=== PATIENT | male | born 1970 | race Caucasian/White ===

== ENCOUNTER 2019-05-15 08:10 | Emergency (ER) | payer OTHER ==
[2019-05-15] MEDS ORDERED: MORPHINE 4 MG/ML SYR ONE (09:08)
[2019-05-15] MEDS ORDERED: ONDANSETRON 4 MG/2 ML VIAL ONE (09:08)
[2019-05-15] MEDS ORDERED: NA CHLORIDE 0.9% 500 ML ONE (09:08)
[2019-05-15 09:10] LABS: Absolute Lymphocytes (CBC) 5.1 K/uL (0.7-4.9); Basophils % 1.2 % (0-1.3); Hematocrit 47.4 % (39.6-49.0); Lymphocytes % 38.6 % (15.3-44.8); MPV 9.4 fL (7.6-11.3); RBC Red Blood Cell Count 5.22 M/uL (4.33-5.43)
[2019-05-15 09:32] LABS: Albumin 3.9 g/dL (3.4-5.0); Bilirubin Total 0.2 mg/dL (0.2-1.0); Potassium 3.9 mmol/L (3.5-5.1); Protein, Total 7.9 g/dL (6.4-8.2)
[2019-05-15 09:51] LABS: Urine Blood NEGATIVE (NEG); Urine Glucose NEGATIVE (NEG); Urine Protein NEGATIVE (NEG); Urine Specific Gravity 1.025 (1.005-1.030); Urine pH 5.5 (5.0-7.0)
--- NOTE | 2019-05-15 10:11 | RAD REPORT ---
EXAM DESCRIPTION: CTAbdomen Pelvis W Contrast - 05/15/2019 9:51 am CLINICAL HISTORY: Abdominal pain. Epigastric / RUQ post miguel angel (remote);Abd pain COMPARISON: CT ABD PELVIS W CONTRAST dated 02/07/2015 TECHNIQUE: Biphasic CT imaging of the abdomen and pelvis was performed with 100 ml non-ionic IV cont rast. All CT scans are performed using dose optimization technique as appropriate and may include automated exposure control or mA/KV adjustment according to patient size. FINDINGS: The lung bases are clear. Mild intrahepatic biliary dilatation is seen. Cholecystectomy clips are seen. No intrahepatic mass se en. The spleen, pancreas, adrenal glands and kidneys are within normal limits. No bowel obstruction, free air, free fluid or abscess. The appendix is normal. No evidence of signi ficant lymphadenopathy. No suspicious bony findings. IMPRESSION: Mild intrahepatic biliary dilatation is seen status post cholecystectomy. This is probab ly within the limits of normal reservoir effect. Correlation with physical exam/laboratory findings o f biliary obstruction is suggested, however.
--- NOTE | 2019-05-15 10:44 | EDPHYS ---
Physician Documentation [facility] Name: Judson Rodriguez Age: 48 yrs Sex: Male : 1970 Arrival Date: 05/15/2019 Time: 08:12 Bed 19 Private MD: ED Physician Gordon Ko HPI: 05/15 08:48 This 48 yrs old Male presents to ER via Ambulatory with complaints of Back ps1 Pain, Leg Pain. 08:48 Patient has known history of lower back pain and sciatica. Has pain specialist in [address], [place]. Has moved to area and sees Dr. Sheldon. Was previously prescribed 10/325 q6 and now 10/325 q8 and he was taking an extra pill. He is out of his medications. Pain is rated as severe. POC is to get epidural injection/rhizotomy. States that he is non-surgical. Looking for pain control in this area. Additionally has RUQ pain. Hx of pancreatitis from triglycerides. Symptoms started about a week ago and intermittent. Has allergy to Embeda but ok with morphine, taken previously. . Historical: - Allergies: 08:35 Embeda; iw - Home Meds: 08:35 Cymbalta 60 mg oral cpDR 1 cap once daily [Active]; Flexeril 10 mg Oral tab 1 tab 3 iw times per day [Active]; unknown BP med daily [Active]; Hyannis 10-325 mg Oral tab every 4-6 hours [Active]; - PMHx: 08:36 Back pain; Hypertension; iw - PSHx: 08:29 lower back; cervical laminectomy; Cholecystectomy; sam shoulders; right hand; ph - Immunization history:: Adult Immunizations not up to date. - Social history:: Smoking status: Patient uses tobacco products, smokes one-half pack cigarettes per day. - Ebola Screening: : No symptoms or risks identified at this time. ROS: 08:48 Constitutional: Negative for fever, chills, and weight loss, Eyes: Negative for injury, ps1 pain, redness, and discharge, Cardiovascular: Negative for chest pain, palpitations, and edema, Respiratory: Negative for shortness of breath, cough, wheezing, and pleuritic chest pain, MS/Extremity: Negative for injury and deformity, Skin: Negative for injury, rash, and discoloration, Neuro: Negative for headache, weakness, numbness, tingling, and seizure. 08:48 Abdomen/GI: Positive for abdominal pain, of the epigastric area and right upper quadrant. 08:48 Back: Positive for pain at rest, pain with movement, radiated pain, down both legs. Exam: 08:53 Constitutional: This is a well developed, well nourished patient who is awake, alert, ps1 and in no acute distress. Head/Face: Normocephalic, atraumatic. Eyes: Pupils equal round and reactive to light, extra-ocular motions intact. Lids and lashes normal. Conjunctiva and sclera are non-icteric and not injected. Chest/axilla: Normal chest wall appearance and motion. Nontender with no deformity. No lesions are appreciated. Cardiovascular: Regular rate and rhythm. No gallops, murmurs, or rubs. Normal PMI, no JVD. No pulse deficits. Respiratory: Lungs have equal breath sounds bilaterally, clear to auscultation and percussion. No rales, rhonchi or wheezes noted. No increased work of breathing, no retractions or nasal flaring. Abdomen/GI: Soft, non-tender, with normal bowel sounds. No distension or tympany. No guarding or rebound. No evidence of tenderness throughout. 08:53 Back: pain, that is mild, of the left low back and right low back. Vital Signs: 08:36 BP 138 / 101; Pulse 123; Resp 18 S; Temp 98.3; Pulse Ox 100% on R/A; Weight 136.08 kg; iw Height 6 ft. 0 in. (182.88 cm); Pain 9/10; 09:42 BP 132 / 94; Pulse 106; Resp 18; Pulse Ox 99% on R/A; Pain 5/10; ph 10:45 BP 127 / 85; Pulse 97; Resp 18; Temp 98.1; Pulse Ox 100% on R/A; ph 08:36 Body Mass Index 40.69 (136.08 kg, 182.88 cm) iw MDM: 08:57 Patient medically screened. ps1 10:41 Differential diagnosis: Inflammatory Bowel Disease Neoplasm Obesity spinal injury, ps1 pancreatitis, biliary obstruction, peptic ulcer, medication compliance, opioid dependance, and others. Data reviewed: vital signs, nurses notes, lab test result(s), radiologic studies. Counseling: I had a detailed discussion with the patient and/or guardian regarding: the historical points, exam findings, and any diagnostic results supporting the discharge/admit diagnosis, the presence of at least one elevated blood pressure reading (>120/80) during this emergency department visit, lab results, radiology results, the need for outpatient follow up, to return to the emergency department if symptoms worsen or persist or if there are any questions or concerns that arise at home. 05/15 08:48 Order name: CBC with Diff; Complete Time: 09:18 [facility] 05/15 09:19 Interpretation: Abnormal: WBC 13.1. [facility] 05/15 08:48 Order name: CMP; Complete Time: 09:38 [facility] 05/15 10:30 Interpretation: Within normal limits: AST 16; ALT 27; ALK 111; BILIT 0.2. [facility] 05/15 08:48 Order name: Lipase; Complete Time: 09:38 [facility] 05/15 09:40 Interpretation: Within normal limits: LIP 107. [facility] 05/15 08:57 Order name: Lipid Profile; Complete Time: 09:38 [facility] 05/15 09:19 Order name: CT Abd/Pelvis - IV Contrast Only; Complete Time: 10:28 [facility] 05/15 09:34 Order name: Urine Dipstick--Ancillary (enter results); Complete Time: 10:28 bd Administered Medications: 09:17 Drug: NS 0.9% 500 ml Route: IV; Rate: 1 bolus; Site: right antecubital; ph 15:28 Follow up: Response: No adverse reaction; IV Status: Completed infusion; IV Intake: ph 500ml 09:18 Drug: morphine 4 mg Route: IVP; Site: right antecubital; ph 15:27 Follow up: Response: No adverse reaction; Pain is decreased; RASS: Alert and Calm (0); ph initial RASS +1 09:18 Drug: Zofran 4 mg Route: IVP; Site: right antecubital; ph 09:40 Follow up: Response: No adverse reaction ph 11:14 Drug: Hyannis 10 mg-325 mg 1 tabs Route: PO; ph 11:15 Follow up: Response: No adverse reaction; Medication administered at discharge. ph Disposition: 05/15/19 10:44 Discharged to Home. Impression: Opioid dependence, Lower back pain, epigastric pain. - Condition is Stable. - Discharge Instructions: Abdominal Pain, Adult, Chronic Back Pain. - Medication Reconciliation Form, Thank You Letter, Antibiotic Education, Prescription Opioid Use form. - Follow up: Emergency Department; When: As needed; Reason: Fever > 102 F, Worsening of condition. Follow up: Private Physician; When: As needed; Reason: Further diagnostic work-up, Recheck today's complaints, Continuance of care, Re-evaluation by your physician. - Problem is an acute exacerbation. - Symptoms have improved. Signatures: Dispatcher [employer] EDTressa Medina RN RN Liz Mclean RN RN Gordon Ko MD MD ps1 Corrections: (The following items were deleted from the chart) 08:35 08:29 Allergies: No Known Drug Allergies; [facility] 09:41 09:40 LIP 107. ps1 ps1 11:27 10:44 05/15/2019 10:44 Discharged to Home. Impression: Opioid dependence; Lower back ph pain; epigastric pain. Condition is Stable. Forms are Medication Reconciliation Form, Thank You Letter, Antibiotic Education, Prescription Opioid Use. Follow up: Emergency Department; When: As needed; Reason: Fever > 102 F, Worsening of condition. Follow up: Private Physician; When: As needed; Reason: Further diagnostic work-up, Recheck today's complaints, Continuance of care, Re-evaluation by your physician. Problem is an acute exacerbation. Symptoms have improved. ps1
--- NOTE | 2019-05-15 10:44 | ER ---
Nurse's Notes [facility] Name: Judson Rodriguez Age: 48 yrs Sex: Male : 1970 Arrival Date: 05/15/2019 Time: 08:12 Bed 19 Private MD: Diagnosis: Opioid dependence;Lower back pain;epigastric pain Presentation: 05/15 08:25 Risk Assessment: Do you want to hurt yourself or someone else? Patient reports no ph desire to harm self or others. Initial Sepsis Screen: Does the patient meet any 2 criteria? No. Patient's initial sepsis screen is negative. Does the patient have a suspected source of infection? No. Patient's initial sepsis screen is negative. Care prior to arrival: None. 08:29 Presenting complaint: Patient states: chronic low back pain from previous back injury, iw is prescribed Glasgow 10/325 TID, ran out 2 nights ago, also c/o RUQ pain X 2 weeks, pain described as stabbing, denies vomiting or diarrhea. Transition of care: patient was not received from another setting of care. Onset of symptoms was May 14, 2019. 08:29 Method Of Arrival: Ambulatory iw 08:29 Acuity: JENNIFER 3 iw Historical: - Allergies: 08:35 Embeda; iw - Home Meds: 08:35 Cymbalta 60 mg oral cpDR 1 cap once daily [Active]; Flexeril 10 mg Oral tab 1 tab 3 iw times per day [Active]; unknown BP med daily [Active]; Glasgow 10-325 mg Oral tab every 4-6 hours [Active]; - PMHx: 08:36 Back pain; Hypertension; iw - PSHx: 08:29 lower back; cervical laminectomy; Cholecystectomy; sam shoulders; right hand; ph - Immunization history:: Adult Immunizations not up to date. - Social history:: Smoking status: Patient uses tobacco products, smokes one-half pack cigarettes per day. - Ebola Screening: : No symptoms or risks identified at this time. Screenin:25 Abuse screen: Denies threats or abuse. Denies injuries from another. Nutritional ph screening: No deficits noted. Tuberculosis screening: No symptoms or risk factors identified. Fall Risk None identified. Assessment: 08:47 General: Appears in no apparent distress. uncomfortable, well groomed, Behavior is ph calm, cooperative, appropriate for age, restless. Pain: Complains of pain in low back area and RUQ. Neuro: Level of Consciousness is awake, alert, obeys commands, Oriented to person, place, time, situation. Cardiovascular: Capillary refill < 3 seconds in bilateral fingers Patient's skin is warm and dry. Respiratory: Airway is patent Respiratory effort is even, unlabored, Respiratory pattern is regular, symmetrical. GI: Abdomen is round non-distended, Reports upper abdominal pain. Derm: Skin is intact, is healthy with good turgor, Skin is pink, warm \T\ dry. Musculoskeletal: Circulation, motion, and sensation intact. Range of motion: intact in all extremities, Reports pain in low back area radiates to sam legs. 09:44 Reassessment: Patient appears in no apparent distress at this time. Patient and/or ph family updated on plan of care and expected duration. Pain level reassessed. Patient is alert, oriented x 3, equal unlabored respirations, skin warm/dry/pink. Pt reports that pain has improved after IV pain meds, taken to CT via wheelchair. Vital Signs: 08:36 BP 138 / 101; Pulse 123; Resp 18 S; Temp 98.3; Pulse Ox 100% on R/A; Weight 136.08 kg; iw Height 6 ft. 0 in. (182.88 cm); Pain 9/10; 09:42 BP 132 / 94; Pulse 106; Resp 18; Pulse Ox 99% on R/A; Pain 5/10; ph 10:45 BP 127 / 85; Pulse 97; Resp 18; Temp 98.1; Pulse Ox 100% on R/A; ph 08:36 Body Mass Index 40.69 (136.08 kg, 182.88 cm) iw ED Course: 08:12 Patient arrived in ED. as 08:24 Liz Mclean, OCTAVIO is Primary Nurse. ph 08:24 Gordon Ko MD is Attending Physician. ps1 08:26 Arm band placed on Patient placed in an exam room, on a stretcher, on pulse oximetry. ph 08:28 Patient has correct armband on for positive identification. Bed in low position. Call ph light in reach. Side rails up X 1. Pulse ox on. NIBP on. Door closed. Noise minimized. 08:33 Triage completed. iw 09:00 Initial lab(s) drawn, by nj, sent to lab. Inserted saline lock: 20 gauge in right ph antecubital area, using aseptic technique. Blood collected. 09:52 CT Abd/Pelvis - IV Contrast Only In Process Unspecified. EDMS 11:25 No provider procedures requiring assistance completed. IV discontinued, intact, ph bleeding controlled, No redness/swelling at site. Pressure dressing applied. Administered Medications: 09:17 Drug: NS 0.9% 500 ml Route: IV; Rate: 1 bolus; Site: right antecubital; ph 15:28 Follow up: Response: No adverse reaction; IV Status: Completed infusion; IV Intake: ph 500ml 09:18 Drug: morphine 4 mg Route: IVP; Site: right antecubital; ph 15:27 Follow up: Response: No adverse reaction; Pain is decreased; RASS: Alert and Calm (0); ph initial RASS +1 09:18 Drug: Zofran 4 mg Route: IVP; Site: right antecubital; ph 09:40 Follow up: Response: No adverse reaction ph 11:14 Drug: Glasgow 10 mg-325 mg 1 tabs Route: PO; ph 11:15 Follow up: Response: No adverse reaction; Medication administered at discharge. ph Intake: 15:28 IV: 500ml; Total: 500ml. ph Outcome: 10:44 Discharge ordered by . ps1 11:27 Patient left the ED. ph 11:27 Discharged to home ambulatory, with family. ph 11:27 Condition: improved 11:27 Discharge instructions given to patient, Instructed on discharge instructions, follow up and referral plans. Demonstrated understanding of instructions, follow-up care. Signatures: Dispatcher [employer] EDMS Tammy Cruz as Tressa Verde RN RN iw Liz Mclean RN RN ph Gordon Ko MD MD ps1 Corrections: (The following items were deleted from the chart) 08:35 08:29 Allergies: No Known Drug Allergies; ph iw
[2019-05-15] MEDS ORDERED: HYDROCODONE/APAP 10/325 TAB ONE (11:04)
[2019-05-15 11:32] VITALS: TEMP 98.3
[2019-05-15 11:33] VITALS: BP 132/94; O2SAT 99
== END 2019-05-15 11:27 | disposition home or self-care (01) ==
LOC: ER 08:10
DX: R10.13 Epigastric pain (principal); F11.20 Opioid dependence, uncomplicated; I10 Essential (primary) hypertension; F17.210 Nicotine dependence, cigarettes, uncomplicated; Z88.8 Allergy status to other drugs, medicaments and biological substances
CPT/HCPCS: 96361; 85025; 36415; 80061; 81003; 83690; 80053; 74177; 96375; 96374; 99284; Q9967; J7040; J2405

== ENCOUNTER 2024-08-11 13:43 | Emergency (ER) | payer OTHER ==
[2024-08-11] MEDS ORDERED: METHYLPREDNISOLONE 125 MG INJ ONE (14:19)
[2024-08-11] MEDS ORDERED: IPRATROPIUM BROM 0.5MG/2.5ML ONE (14:19)
[2024-08-11] MEDS ORDERED: LEVALBUTEROL 1.25 MG/3 ML NEB ONE ×4 (14:19→17:46)
[2024-08-11] MEDS ORDERED: levoFLOXacin 250 MG TAB ONE (14:20)
[2024-08-11] MEDS ORDERED: FAMOTIDINE 20 MG/2 ML VIAL IV ONE ×2 (14:20→16:36)
[2024-08-11 14:40] LABS: Absolute Lymphocytes (CBC) 2.6 K/uL (0.7-4.9); Absolute Monocytes 1.6 K/uL (0.1-1.3); Absolute Neutrophil 18.5 K/uL (1.8-8.0); Basophils % 0.2 % (0-1.3); Eosinophils % 0.1 % (0-4.4); Hemoglobin 14.9 g/dL (13.6-17.9); Lymphocytes % 11.4 % (15.3-44.8); MCH 29.4 pg (27.0-35.0); MCHC 33.2 g/dL (32.0-36.0); MCV 88.6 fL (80-100); Monocytes % 6.9 % (3.3-12.3); Neutrophils % 81.4 % (41.7-73.7); Platelets 418 thou/uL (152-406); RBC Red Blood Cell Count 5.08 M/uL (4.33-5.43); Red Cell Distribution Width 14.2 % (12.1-15.2)
[2024-08-11 14:55] LABS: PT Prothrombin Time 13.4 SECONDS (10.0-13.0); Protime INR 1.18
[2024-08-11 15:00] LABS: Albumin 2.9 g/dL (3.4-5.0); Albumin/Globulin Ratio 0.6 (1.1-1.8); Anion Gap 7.1 mEq/L (5.0-15.0); Bilirubin Direct 0.2 mg/dL (0-0.2); Bilirubin Indirect, Calculated 0.2 mg/dL (0.2-0.8); Bilirubin Total 0.4 mg/dL (0.2-1.0); Globulin 4.6 g/dL (2.3-3.5); Magnesium 2.3 mg/dL (1.6-2.4); Potassium 4.1 mEq/L (3.5-5.1); Protein, Total 7.5 g/dL (6.4-8.2); Troponin High Sensitivity 24.1 pg/mL (<58.9)
[2024-08-11 15:03] LABS: Influenza A Ag Negative; Influenza B Ag Negative; SARS-CoV-2 Antigen Rapid Res Negative (Negative)
[2024-08-11] MEDS ORDERED: TOBRAMYCIN SULF 0.3% OPTH OINT ONE (15:16)
--- NOTE | 2024-08-11 15:19 | RAD REPORT ---
EXAMINATION: ONE VIEW CHEST XR CLINICAL INDICATION: Male, 53 years old.,COUGH TECHNIQUE: Frontal chest projection is submitted. Examination is limited by patient positioning and t echnique. COMPARISON: 02/08/2015 FINDINGS: Progressive patchy central predominant bilateral airspace opacities. No pneumothorax or sizable effu yolande. The heart is normal in size. Mediastinal contours are unremarkable. IMPRESSION: Progressive patchy central predominant bilateral airspace opacities, concerning for pneumonitis.
[2024-08-11] MEDS ORDERED: CEFTRIAXONE 2000 MG/VIAL ONE (15:33)
[2024-08-11] MEDS ORDERED: NA CHLORIDE 0.9% 250 ML ONE (15:34)
[2024-08-11] MEDS ORDERED: AZITHROMYCIN 500 MG INJ IVPB ONE (15:34)
[2024-08-11] MEDS ORDERED: NA CHLORIDE 0.9% 100 ML ONE (15:34)
--- NOTE | 2024-08-11 15:38 | EDPHYS ---
Physician Documentation [facility] Name: Judson Rodriguez Age: 53 yrs Sex: Male : 1970 Arrival Date: 08/11/2024 Time: 13:43 Bed 3 Private MD: ED Physician Bryce Benjamin HPI: 08/11 14:36 This 53 yrs old Male presents to ER via Ambulatory with complaints of carter Breathing Difficulty. 14:36 The patient has shortness of breath with light activity. Onset: The symptoms/episode carter began/occurred 10 day(s) ago. Duration: The symptoms are continuous, and are steadily getting worse. The patient's shortness of breath is aggravated by coughing, exertion, light activity. Associated signs and symptoms: Pertinent positives: non-productive cough, fever. Severity of symptoms: At their worst the symptoms were moderate in the emergency department the symptoms are unchanged. The patient has not experienced similar symptoms in the past. Historical: - Allergies: 13:59 Embeda; ap3 - Home Meds: 17:06 methadone 10 mg Oral tablet every 8 hours [Active]; methimazole 5 mg Oral tablet 0.5 iw tab daily [Active]; fluticasone propionate 250 mcg/actuation inhalation Blister, With Inhalation Device 2 times per day [Active]; losartan 100 mg oral tablet daily [Active]; cyclobenzaprine 10 mg Oral tablet once daily at bedtime [Active]; tamsulosin 0.4 mg oral capsule daily [Active]; duloxetine 60 mg oral capsule,delayed release (e.c.) 2 times per day [Active]; nebivolol 2.5 mg oral tablet daily [Active]; hyoscyamine sulfate 0.125 mg SL Tablet, Sublingual every 8 hours [Active]; - PMHx: 13:59 Back pain; Hypertension; ap3 - Immunization history:: Client reports having NOT received the Covid vaccine. Last tetanus immunization: unknown, Flu vaccine is not up to date. - Infectious Disease History:: Denies. - Social history:: Smoking status: Patient reports the use of cigarette tobacco products, smokes one pack cigarettes per day. ROS: 14:36 Constitutional: Negative for fever, chills, and weight loss, ENT: Negative for injury, carter pain, and discharge, Neck: Negative for injury, pain, and swelling, Cardiovascular: Negative for chest pain, palpitations, and edema, Abdomen/GI: Negative for abdominal pain, nausea, vomiting, diarrhea, and constipation, Back: Negative for injury and pain, : Negative for injury, bleeding, discharge, and swelling, MS/Extremity: Negative for injury and deformity, Skin: Negative for injury, rash, and discoloration, Neuro: Negative for headache, weakness, numbness, tingling, and seizure, Psych: Negative for depression, anxiety, suicide ideation, homicidal ideation, and hallucinations, Allergy/Immunology: Negative for hives, rash, and allergies, Endocrine: Negative for neck swelling, polydipsia, polyuria, polyphagia, and marked weight changes, Hematologic/Lymphatic: Negative for swollen nodes, abnormal bleeding, and unusual bruising, 14:36 Eyes: Positive for itching, matting, 14:36 Respiratory: Positive for cough, shortness of breath, wheezing, inspiratory, expiratory, 14:36 Neuro: Positive for weakness, Exam: 14:36 Constitutional: This is a well developed, well nourished patient who is awake, alert, carter and in no acute distress. Head/Face: Normocephalic, atraumatic. ENT: Nares patent. No nasal discharge, no septal abnormalities noted. Tympanic membranes are normal and external auditory canals are clear. Oropharynx with no redness, swelling, or masses, exudates, or evidence of obstruction, uvula midline. Mucous membranes moist. Neck: Trachea midline, no thyromegaly or masses palpated, and no cervical lymphadenopathy. Supple, full range of motion without nuchal rigidity, or vertebral point tenderness. No Meningismus. Chest/axilla: Normal chest wall appearance and motion. Nontender with no deformity. No lesions are appreciated. Cardiovascular: Regular rate and rhythm with a normal S1 and S2. No gallops, murmurs, or rubs. Normal PMI, no JVD. No pulse deficits. Abdomen/GI: Soft, non-tender, with normal bowel sounds. No distension or tympany. No guarding or rebound. No evidence of tenderness throughout. Back: No spinal tenderness. No costovertebral tenderness. Full range of motion. Male : Normal genitalia with no discharge or lesions. Skin: Warm, dry with normal turgor. Normal color with no rashes, no lesions, and no evidence of cellulitis. MS/ Extremity: Pulses equal, no cyanosis. Neurovascular intact. Full, normal range of motion., bilateral aka Neuro: Awake and alert, GCS 15, oriented to person, place, time, and situation. Cranial nerves II-XII grossly intact. Motor strength 5/5 in all extremities. Sensory grossly intact. Cerebellar exam normal. Normal gait. Psych: Awake, alert, with orientation to person, place and time. Behavior, mood, and affect are within normal limits. 14:36 Eyes: Periorbital structures: erythema, that is mild, swelling, that is mild, Pupils: no acute changes, equal, round, and reactive to light and accomodation, Extraocular movements: intact throughout, Conjunctiva: injected, bilaterally, Corneas: are normal, no acute changes, Sclera: no appreciated abnormality, Anterior chamber: normal, Lids and lashes: erythema, seen bilaterally, Visual curiel: are intact, Nystagmus: is not appreciated, 14:46 ECG was reviewed by the Attending Physician. [facility] Vital Signs: 13:45 Pulse Ox 86% on R/A; ap3 13:58 BP 135 / 104; Pulse 96; Resp 19; Temp 98.7(O); Pulse Ox 94% on 3 lpm NC; Weight 133.81 ap3 kg; Height 6 ft. 1 in. ; Pain 6/10; 14:30 BP 140 / 76; Pulse 96; Resp 18; Pulse Ox 99% on R/A; ld1 15:25 BP 177 / 90; Pulse 94; Resp 24; Pulse Ox 92% on 4 lpm NC; iw 16:14 BP 175 / 92; Pulse 100; Resp 22; Pulse Ox 93% on 4 lpm NC; ld1 16:57 BP 151 / 75; Pulse 105; Resp 22; Pulse Ox 95% on BiPAP; iw 17:10 BP 136 / 54; Pulse 98; Resp 16; Pulse Ox 99% on BiPAP; iw 13:58 Body Mass Index 38.92 (133.81 kg, 185.42 cm) ap3 13:58 Pain Scale: Adult ap3 MDM: 13:52 Medical Screening Exam initiated [facility] 14:41 Differential diagnosis: Acute iritis of Anxiety Reaction asthma, CHF exacerbation, carter Chronic Obstructive Pulmonary Disease viral Infection, bacterial infection, URI, bronchitis, pneumonia UTI, Myocardial Infarction pneumonia, pulmonary edema, reactive airway disease, Sepsis Unstable Angina. Antibiotic administration: Levaquin given. Differential Diagnosis altered mental status, sepsis, flu. Immunization status: Influenza vaccine: within last 5 years. Data reviewed: vital signs, nurses notes, lab test result(s), EKG, radiologic studies, plain films. Consideration of Admission/Observation Patient was admitted/placed on observation. Escalation of care including admission/observation considered. I considered the following discharge prescriptions or medication management in the emergency department Medications were administered in the Emergency Department. See MAR. Independent interpretation of the following test(s) in the Emergency Department EKG: See my EKG interpretation above. Test considered but Not performed: Ultrasound NO 2 D ECHO. 15:59 Post IV fluid administration reassessment for Sepsis: Client prescribed 30 mL/kg IVF. [facility] Sepsis focused reassessment complete. Counseling: I had a detailed discussion with the patient and/or guardian regarding the historical points, exam findings, and any diagnostic results supporting the discharge/admit diagnosis, lab results, radiology results, the need for further work-up and treatment in the hospital. 08/11 13:53 Order name: Basic Metabolic Panel; Complete Time: 15:02 [facility] 08/11 13:53 Order name: CBC with Diff; Complete Time: 16:26 [facility] 08/11 13:53 Order name: LFT's; Complete Time: 15:02 [facility] 08/11 13:53 Order name: Magnesium; Complete Time: 15:02 [facility] 08/11 13:53 Order name: NT PRO-BNP; Complete Time: 15:02 [facility] 08/11 13:53 Order name: PT-INR; Complete Time: 15:02 [facility] 08/11 13:53 Order name: Troponin HS; Complete Time: 15:02 [facility] 08/11 13:53 Order name: Urinalysis w/ reflexes [facility] 08/11 13:53 Order name: Lipase; Complete Time: 15:02 [facility] 08/11 14:06 Order name: Lactate w/ 2H reflex if indic.; Complete Time: 15:02 [facility] 08/11 14:06 Order name: Blood Culture Adult (2) [facility] 08/11 14:32 Order name: COVID-19 Ag + Flu A+B Ag; Complete Time: 15:33 EDMS 08/11 14:35 Order name: Wound Culture [facility] 08/11 14:58 Order name: Manual Differential; Complete Time: 16:26 [facility] 08/11 16:17 Order name: ABG [facility] 08/11 14:46 Order name: Chest Single View XRAY; Complete Time: 15:33 [facility] 08/11 15:04 Order name: CT Chest For PE Angio; Complete Time: 16:26 [facility] 08/11 16:41 Order name: BIPAP [facility] 08/11 13:53 Order name: Cardiac monitoring; Complete Time: 14:02 [facility] 08/11 13:53 Order name: EKG - Nurse/Tech; Complete Time: 14:02 [facility] 08/11 13:53 Order name: IV Saline Lock; Complete Time: 14:21 [facility] 08/11 13:53 Order name: Labs collected and sent; Complete Time: 14:21 [facility] 08/11 13:53 Order name: O2 Per Protocol; Complete Time: 14:02 [facility] 08/11 13:53 Order name: O2 Sat Monitoring; Complete Time: 14:02 [facility] 08/11 14:45 Order name: IV Saline Lock - Large Bore; Complete Time: 14:58 [facility] EC:46 Rate is 84 beats/min. Rhythm is regular. QRS [place] is Normal. [place] interval is normal. QRS carter interval is normal. QT interval is normal. No Q waves. T waves are Normal. No ST changes noted. Clinical impression: NSR w/ Non-specific ST/T Changes and No evidence of ischemia. Interpreted by me. Reviewed by me. Administered Medications: 14:28 Drug: Famotidine IVP 20 mg IVP once; dilute with 10 mL 0.9% NaCl; give over 2 minutes ld1 Route: IVP; Site: left forearm; 16:36 Follow up: Response: No adverse reaction ld1 14:28 Drug: LevOfloxacin PO 750 mg PO once Route: PO; ld1 16:36 Follow up: Response: No adverse reaction ld1 14:29 Drug: MethylPrednisoLONE IVP 125 mg IVP once Route: IVP; Site: left wrist; ld1 16:37 Follow up: Response: No adverse reaction ld1 14:29 Drug: Levalbuterol Inhalation 3.75 mg Inhalation once Route: Inhalation; ld1 16:36 Follow up: Response: No adverse reaction ld1 14:29 Drug: Ipratropium Inhalation Aerosol 0.5 mg Inhalation once Route: Inhalation; ld1 16:36 Follow up: Response: No adverse reaction ld1 15:25 Drug: Tobramycin Ophthalmic Ointment (0.3 %) 1 application Ophthalmic once Route: iw Ophthalmic; Site: both eyes; 16:37 Follow up: Response: No adverse reaction ld1 16:07 Drug: Rocephin IV 2 grams IV at per protocol once; Given slow IV push per pharmarcy iw instructions Route: IV; Rate: per protocol; Site: left forearm; 16:38 Follow up: Response: No adverse reaction; IV Status: Completed infusion; IV Intake: ld1 100ml 16:30 Drug: NS 0.9% IV (30 ml/kg) 30 ml/kg IV at bolus once; Sepsis Protocol; to be given as iw a bolus over 90 minutes Route: IV; Rate: bolus; Site: left wrist; 17:45 Follow up: IV Status: Infusion continued upon transfer iw 16:35 Drug: Levalbuterol Inhalation 1.25 mg Inhalation once Route: Inhalation; ld1 17:02 Follow up: Response: No adverse reaction iw 16:35 Drug: Levalbuterol Inhalation 1.25 mg Inhalation once Route: Inhalation; ld1 17:02 Follow up: Response: No adverse reaction iw 16:36 Not Given (Physician Discretion): [id number] mg IVP once ld1 16:37 Drug: Famotidine IVP 20 mg IVP once; dilute with 10 mL 0.9% NaCl; give over 2 minutes ld1 Route: IVP; Site: right antecubital; 17:02 Follow up: Response: No adverse reaction iw 16:50 Drug: Magnesium Sulfate IVPB 2 grams IVPB once over 1 hrs Route: IVPB; Infused Over: 1 iw hrs; Site: right antecubital; 17:30 Follow up: IV Status: Completed infusion iw 16:51 Drug: Zithromax IVPB 500 mg IVPB once over 1 hrs; mix in 250 mL NS Route: IVPB; Infused iw Over: 1 hrs; Site: right antecubital; 17:50 Follow up: IV Status: Infusion continued upon transfer iw 17:02 Drug: Levalbuterol Inhalation 3.75 mg Inhalation once Route: Inhalation; iw Disposition Summary: 08/11/24 17:04 Transfer Ordered Notes: [facility] Reason: Higher level of care carter Condition: Fair(08/11/24 17:04) carter Problem: an acute exacerbation(08/11/24 17:04) carter Symptoms: have improved(08/11/24 17:04) carter Accepting Physician: TO ICU [facility](08/11/24 18:17) sp Diagnosis - Dyspnea(08/11/24 17:04) carter - Other conjunctivitis - BILATERAL(08/11/24 17:04) carter - Tobacco abuse counseling(08/11/24 17:04) carter - Tobacco use(08/11/24 17:04) carter - Elevated white blood cell count(08/11/24 17:04) carter - Severe sepsis without septic shock(08/11/24 17:04) carter - Pneumonia due to other specified bacteria - BILATERAL(08/11/24 17:04) carter - Hypoxemia(08/11/24 17:04) carter - Acute and chronic respiratory failure with hypercapnia(08/11/24 17:04) carter Forms: - Medication Reconciliation Form carter - SBAR form carter Signatures: Dispatcher [employer] EDMS Bryce Benjamin MD MD cha Pinkerton, Shawna sp Williams, Irene, RN RN iw Kerry Braun RN RN ap3 Lisa Land RN RN ld1 Corrections: (The following items were deleted from the chart) 13:53 13:53 BASIC METABOLIC PANEL+C.LAB.BRZ ordered. EDMS EDMS 13:53 13:53 CBC+H.LAB.BRZ ordered. EDMS EDMS 13:53 13:53 HEPATIC FUNCTION+C.LAB.BRZ ordered. EDMS EDMS 13:53 13:53 MAGNESIUM+C.LAB.BRZ ordered. EDMS EDMS 13:53 13:53 PROBNP+C.LAB.BRZ ordered. EDMS EDMS 13:53 13:53 PROTIME (+INR)+COAG.LAB.BRZ ordered. EDMS EDMS 13:54 13:53 Troponin High Sensitivity+C.LAB.BRZ ordered. EDMS EDMS 13:54 13:53 Urinalysis+U.LAB.BRZ ordered. EDMS EDMS 13:54 13:53 LIPASE+C.LAB.BRZ ordered. EDMS EDMS 13:54 13:53 Influenza Screen (A \T\ B)+BA.LAB.BRZ ordered. EDMS EDMS 13:54 13:53 SARS-COV-2 Antigen Rapid+I.LAB.BRZ ordered. EDMS EDMS 13:54 13:54 Chest Single View+RAD.RAD.BRZ ordered. EDMS EDMS 14:06 14:06 LACTATE+C.LAB.BRZ ordered. EDMS EDMS 14:06 14:06 BLOOD CULTURE*+BA.LAB.BRZ ordered. EDMS EDMS 14:32 14:30 Influenza Screen (A ordered. EDMS EDMS 14:36 14:36 Wound Culture+BA.LAB.BRZ ordered. EDMS EDMS 15:05 15:05 Chest For PE Angio+CT.RAD.BRZ ordered. EDMS EDMS 16:54 15:37 Inpatient Admission carter carter 16:54 15:37 Lora, Mohammad carter carter 16:54 15:37 Telemetry/MedSurg (Inpatient) carter carter 16:54 15:37 Fair carter carter 16:54 15:37 an ongoing problem carter carter 16:54 15:37 have worsened carter carter 16:54 15:37 Standard carter carter 16:54 15:37 carter carter 16:54 15:37 Pneumonia due to other specified bacteria - BILATERAL carter carter 16:54 15:37 Dyspnea carter carter 16:54 15:37 Other conjunctivitis - BILATERAL carter carter 16:54 15:37 Tobacco abuse counseling carter carter 16:54 15:37 Tobacco use carter carter 16:54 15:37 Hypoxemia carter carter 16:54 15:37 Elevated white blood cell count carter carter 16:54 15:59 Severe sepsis without septic shock carter carter 16:54 16:44 Acute and chronic respiratory failure with hypercapnia carter carter 18:17 17:04 TO ICU [facility] carter sp
--- NOTE | 2024-08-11 15:38 | ER ---
Nurse's Notes [facility] Name: Judson Rodriguez Age: 53 yrs Sex: Male : 1970 Arrival Date: 08/11/2024 Time: 13:43 Bed 3 Private MD: Diagnosis: Dyspnea;Other conjunctivitis-BILATERAL;Tobacco abuse counseling;Tobacco use;Elevated white blood cell count;Severe sepsis without septic shock;Pneumonia due to other specified bacteria-BILATERAL;Hypoxemia;Acute and chronic respiratory failure with hypercapnia Presentation: 08/11 13:57 Chief complaint: Patient states: he has been sick for approx a week with productive ap3 cough and congestion. patient also states he has had shortness of breath during this time. patient is diaphoretic in triage. Coronavirus screen: Client presents with at least one sign or symptom that may indicate coronavirus-19. Ebola Screen: No symptoms or risks identified at this time. 13:57 Method Of Arrival: Ambulatory ap3 13:58 Initial Sepsis Screen: Does the patient meet any 2 criteria? HR > 90 bpm. Does the ap3 patient have a suspected source of infection? No. Patient's initial sepsis screen is negative. Risk Assessment: Do you want to hurt yourself or someone else? Patient reports no desire to harm self or others. Onset of symptoms is unknown. 13:58 Acuity: JENNIFER 2 ap3 Triage Assessment: 14:00 General: Appears distressed, ill, Behavior is cooperative. Pain: Complains of pain in ap3 back Pain currently is 6 out of 10 on a pain scale. Neuro: Level of Consciousness is awake, alert, obeys commands, Oriented to person, place, time, situation, Appropriate for age. Cardiovascular:. Respiratory: Reports shortness of breath cough that is productive, Airway is patent Respiratory effort is labored, Respiratory pattern is symmetrical, Onset: The symptoms/episode began/occurred gradually, the patient has moderate shortness of breath. 14:01 Derm: Skin is clammy, diaphoretic. ap3 Historical: - Allergies: 13:59 Embeda; ap3 - Home Meds: 17:06 methadone 10 mg Oral tablet every 8 hours [Active]; methimazole 5 mg Oral tablet 0.5 iw tab daily [Active]; fluticasone propionate 250 mcg/actuation inhalation Blister, With Inhalation Device 2 times per day [Active]; losartan 100 mg oral tablet daily [Active]; cyclobenzaprine 10 mg Oral tablet once daily at bedtime [Active]; tamsulosin 0.4 mg oral capsule daily [Active]; duloxetine 60 mg oral capsule,delayed release (e.c.) 2 times per day [Active]; nebivolol 2.5 mg oral tablet daily [Active]; hyoscyamine sulfate 0.125 mg SL Tablet, Sublingual every 8 hours [Active]; - PMHx: 13:59 Back pain; Hypertension; ap3 - Immunization history:: Client reports having NOT received the Covid vaccine. Last tetanus immunization: unknown, Flu vaccine is not up to date. - Infectious Disease History:: Denies. - Social history:: Smoking status: Patient reports the use of cigarette tobacco products, smokes one pack cigarettes per day. Screenin:01 Abuse screen: Denies threats or abuse. Nutritional screening: No deficits noted. ap3 Tuberculosis screening: No symptoms or risk factors identified. 17:45 [facility] ED Fall Risk Assessment (Adult) History of falling in the last 3 months, iw including since admission No falls in past 3 months (0 pts) Confusion or Disorientation Yes (5 pts) Intoxicated or Sedated No (0 pts) Impaired Gait No (0 pts) Mobility Assist Device Used No (0 pt) Altered Elimination No (0 pt) Score/Fall Risk Level 3 or more points = High Risk Oriented to surroundings, Maintained a safe environment. Assessment: 14:21 General: Appears uncomfortable, Behavior is calm, cooperative. General: Reports chills iw for >3 days, fever for feeling ill for. Neuro: Level of Consciousness is awake, alert, obeys commands, Oriented to person, place, time, situation, Moves all extremities. Cardiovascular: Rhythm is regular. Respiratory: Reports shortness of breath at rest on exertion cough that is productive, Airway is patent Respiratory effort is even, labored, Respiratory pattern is regular, the patient has moderate shortness of breath. GI: Abdomen is round non-distended, obese. EENT: Eyes with exudate noted from outer aspect of conjuctiva of right eye, iris of right eye, inner aspect of conjuctiva of right eye, right inner canthus, outer aspect of conjuctiva of left eye, iris of left eye, inner aspect of conjunctiva of left eye and left inner canthus Sclera/Cornea are reddened in outer aspect of conjuctiva of right eye, iris of right eye, inner aspect of conjuctiva of right eye, outer aspect of conjuctiva of left eye, iris of left eye and inner aspect of conjunctiva of left eye. Derm: Skin is intact. Musculoskeletal: Range of motion: intact in all extremities. 16:08 Neuro: Level of Consciousness is awake, alert, obeys commands. Respiratory: Reports iw shortness of breath at rest on exertion Respiratory effort is even, labored, Respiratory pattern is tachypnea. 16:30 Reassessment: pt appears to be confused, shaking his hands, when I asked pt what he was iw grabbing at ,pt mumbling, confused, not making sense. 16:38 Reassessment: Pt diaphoretic, c/o SOB. Yrn Lozada \Angela\ Nando at bedside ld1 assessing patient at this time. 17:44 Reassessment: Patient appears in no apparent distress at this time. pt appears more iw relaxed, remains on bipap, awakens to strong tactile stimuli , pt oriented to person place Patient states symptoms have improved. Vital Signs: 13:45 Pulse Ox 86% on R/A; ap3 13:58 BP 135 / 104; Pulse 96; Resp 19; Temp 98.7(O); Pulse Ox 94% on 3 lpm NC; Weight 133.81 ap3 kg; Height 6 ft. 1 in. ; Pain 6/10; 14:30 BP 140 / 76; Pulse 96; Resp 18; Pulse Ox 99% on R/A; ld1 15:25 BP 177 / 90; Pulse 94; Resp 24; Pulse Ox 92% on 4 lpm NC; iw 16:14 BP 175 / 92; Pulse 100; Resp 22; Pulse Ox 93% on 4 lpm NC; ld1 16:57 BP 151 / 75; Pulse 105; Resp 22; Pulse Ox 95% on BiPAP; iw 17:10 BP 136 / 54; Pulse 98; Resp 16; Pulse Ox 99% on BiPAP; iw 13:58 Body Mass Index 38.92 (133.81 kg, 185.42 cm) ap3 13:58 Pain Scale: Adult ap3 ED Course: 13:44 Patient arrived in ED. mr 13:52 Bryce Benjamin MD is Attending Physician. carter 13:59 Triage completed. ap3 14:01 Patient has correct armband on for positive identification. Bed in low position. Call ap3 light in reach. Side rails up X 1. Adult w/ patient. Client placed on continuous cardiac and pulse oximetry monitoring. NIBP monitoring applied. groundwater monitoring technician on. Pulse ox on. NIBP on. 14:01 Arm band placed on right wrist. ap3 14:20 Tressa Verde RN is Primary Nurse. iw 14:21 Inserted saline lock: 22 gauge in left forearm, using aseptic technique. Blood iw collected. Flushed with 10 mL NS. 14:21 Initial lab(s) drawn, by me, sent to lab. First set of blood cultures drawn by me. iw 14:29 Blood Culture Adult (2) Sent. ld1 14:29 Lactate w/ 2H reflex if indic. Sent. ld1 14:55 Chest Single View XRAY In Process Unspecified. EDMS 15:34 Renu Lora MD is Hospitalizing Provider. [facility] 15:57 CT Chest For PE Angio In Process Unspecified. EDNE 16:[address] Benjamin called [facility] [[email or web address] for transfer talked to Zita. 1652 Dr. Gerry Saavedra accepted sp pt. 1652 Admin approval by Zita Olivas to [address] [address] to bed 4 unit c room 4047 report number [phone] Dr. Benjamin called [facility]. 18:00 No provider procedures requiring assistance completed. Patient transferred, IV remains iw in place. Administered Medications: 14:28 Drug: Famotidine IVP 20 mg IVP once; dilute with 10 mL 0.9% NaCl; give over 2 minutes ld1 Route: IVP; Site: left forearm; 16:36 Follow up: Response: No adverse reaction ld1 14:28 Drug: LevOfloxacin PO 750 mg PO once Route: PO; ld1 16:36 Follow up: Response: No adverse reaction ld1 14:29 Drug: MethylPrednisoLONE IVP 125 mg IVP once Route: IVP; Site: left wrist; ld1 16:37 Follow up: Response: No adverse reaction ld1 14:29 Drug: Levalbuterol Inhalation 3.75 mg Inhalation once Route: Inhalation; ld1 16:36 Follow up: Response: No adverse reaction ld1 14:29 Drug: Ipratropium Inhalation Aerosol 0.5 mg Inhalation once Route: Inhalation; ld1 16:36 Follow up: Response: No adverse reaction ld1 15:25 Drug: Tobramycin Ophthalmic Ointment (0.3 %) 1 application Ophthalmic once Route: iw Ophthalmic; Site: both eyes; 16:37 Follow up: Response: No adverse reaction ld1 16:07 Drug: Rocephin IV 2 grams IV at per protocol once; Given slow IV push per pharmarcy iw instructions Route: IV; Rate: per protocol; Site: left forearm; 16:38 Follow up: Response: No adverse reaction; IV Status: Completed infusion; IV Intake: ld1 100ml 16:30 Drug: NS 0.9% IV (30 ml/kg) 30 ml/kg IV at bolus once; Sepsis Protocol; to be given as iw a bolus over 90 minutes Route: IV; Rate: bolus; Site: left wrist; 17:45 Follow up: IV Status: Infusion continued upon transfer iw 16:35 Drug: Levalbuterol Inhalation 1.25 mg Inhalation once Route: Inhalation; ld1 17:02 Follow up: Response: No adverse reaction iw 16:35 Drug: Levalbuterol Inhalation 1.25 mg Inhalation once Route: Inhalation; ld1 17:02 Follow up: Response: No adverse reaction iw 16:36 Not Given (Physician Discretion): [id number] mg IVP once ld1 16:37 Drug: Famotidine IVP 20 mg IVP once; dilute with 10 mL 0.9% NaCl; give over 2 minutes ld1 Route: IVP; Site: right antecubital; 17:02 Follow up: Response: No adverse reaction iw 16:50 Drug: Magnesium Sulfate IVPB 2 grams IVPB once over 1 hrs Route: IVPB; Infused Over: 1 iw hrs; Site: right antecubital; 17:30 Follow up: IV Status: Completed infusion iw 16:51 Drug: Zithromax IVPB 500 mg IVPB once over 1 hrs; mix in 250 mL NS Route: IVPB; Infused iw Over: 1 hrs; Site: right antecubital; 17:50 Follow up: IV Status: Infusion continued upon transfer iw 17:02 Drug: Levalbuterol Inhalation 3.75 mg Inhalation once Route: Inhalation; iw Medication: 14:23 VIS not applicable for this client. iw Intake: 16:38 IV: 100ml; Total: 100ml. ld1 Outcome: 15:37 Decision to Hospitalize by Provider. carter 17:04 ER care complete, transfer ordered by . carter 18:16 Transferred by [facility] to [facility], Transfer iw form completed. X-rays sent w/ patient. 18:16 Condition: stable 18:16 Discharge instructions given to family, Instructed on the need for transfer, Demonstrated understanding of instructions, 18:17 Patient left the ED. sp Signatures: Dispatcher [employer] EDMS Bryce Benjamin MD MD cha Pinkerton, Shawna sp Rivera, Shantel, Reg Reg mr Tressa Verde, RN RN iw Kerry Braun RN RN ap3 Lisa Land RN RN ld1
[2024-08-11 15:53] LABS: Differential Total Cells Count 100; Segmented Neutrophils 71 % (40-80)
[2024-08-11 15:54] LABS: Blood Morphology Comment NOT SEEN (NOT SEEN); Eosinophils 1 % (0-3); Lymphocytes 20 % (15-42); Monocytes 8 % (0-10); Platelet Estimate ADEQ
[2024-08-11] MEDS ORDERED: NA CHLORIDE 0.9% 1,000 ML ONE (16:09)
--- NOTE | 2024-08-11 16:23 | RAD REPORT ---
EXAM: CT Chest For Pe Angio TECHNIQUE: CT angiogram of the chest was performed following intravenous contrast administration, inc luding sagittal and coronal as well as maximum intensity projection reformats. One or more of the following dose reduction techniques were used: Automated exposure control, adjustment of the mA and k V according to patient size, and iterative reconstruction. Unless otherwise specified, incidental findings do not require dedicated imaging follow-up. INDICATION: Cough;Dyspnea COMPARISON: Chest radiograph of the same day. FINDINGS: Motion and beam hardening artifact limiting evaluation. LINES/TUBES: None. PULMONARY ARTERIES: Main pulmonary arteries are normal in caliber. No filling defects within the pul monary arteries to suggest pulmonary embolus. LUNGS AND AIRWAYS: Bilateral patchy airspace opacities as well as scattered tree-in-bud opacities, mo st pronounced in the left upper lung. Central airways appear patent. PLEURA: No effusion or pneumothorax. HEART AND MEDIASTINUM: The visualized thyroid gland is normal. Prominent mediastinal and bilateral hi lar lymph nodes, largest left AP window region measuring 2.4 cm in short axis. Heart is unremarkable. No pericardial effusion. SOFT TISSUES AND BONES: No acute osseous abnormality. No significant soft tissue finding. Spinal sti mulator electrodes within the midthoracic canal. UPPER ABDOMEN: Unremarkable. IMPRESSION: No evidence of acute central pulmonary emboli. Bilateral pulmonary airspace opacities as above, concerning for multifocal pneumonia. Prominent media stinal and hilar lymph nodes, likely reactive. Imaging follow-up of these findings is recommended to ensure resolution.
[2024-08-11] MEDS ORDERED: Magnesium Sulfate 2gm IVPB 2 G/50 ML BAG IV ONE (16:36)
[2024-08-11 17:04] LABS: Specific Gravity 1.014 (1.005-1.030); Sqamous Epithelial <5 /HPF (None Seen); Urine Bacteria <20 /HPF (<20); Urine Bilirubin NEGATIVE (Negative); Urine Blood Trace (Negative); Urine Clarity Clear (Clear); Urine Color Light-Yellow (Yellow); Urine Culture Reflex Order NOT NEEDED; Urine Glucose NEGATIVE (Negative); Urine Ketones NEGATIVE (Negative); Urine Microscopic Reflex YN ORDER UMIC; Urine Nitrite NEGATIVE (Negative); Urine Protein TRACE (Negative); Urine RBC <5 /HPF (None Seen); Urine Urobilinogen Normal (Normal); Urine WBC <5 /HPF (<5)
[2024-08-11 18:08] LABS: Blood Gas Oxyhemoglobin 92.9 % (94-97); Blood Gas THB 15.8 g/dl (12-18); Blood O2 Saturation 97.6 % (92-98.5)
[2024-08-11 19:10] VITALS: TEMP 98.7
[2024-08-11 19:19] VITALS: BP 136/54; O2SAT 99
--- NOTE | 2024-08-13 12:02 | EKG ---
Test Date: 2024-08-11 Test Time: 13:58:59 Roller Leveler Operator: MARTHA MEASUREMENT RESULTS: Intervals: Rate: 84 OH: 136 QRSD: 94 QT: 360 QTc: 425 [place]: P: 72 OH: 136 QRS: 48 T: 72 INTERPRETIVE STATEMENTS: Normal sinus rhythm Incomplete right bundle branch block Septal infarct, age undetermined Abnormal ECG Compared to ECG 02/08/2015 05:35:00 Myocardial infarct finding now present Electronically Signed On 08-13-24 11:59:15 [employer]ERAL HOME ATTENDANT by Theo Bedoya
== END 2024-08-11 18:17 | disposition short-term general hospital (02) ==
LOC: ER 13:43
DX: J15.8 Pneumonia due to other specified bacteria (principal); J96.22 Acute and chronic respiratory failure with hypercapnia; R65.20 Severe sepsis without septic shock; D72.829 Elevated white blood cell count, unspecified; H10.89 Other conjunctivitis; Z72.0 Tobacco use; Z71.6 Tobacco abuse counseling; Z11.52 Encounter for screening for COVID-19; I10 Essential (primary) hypertension
CPT/HCPCS: 93005; 87040 ×2; 87070; 85025; 81001; 80048; 36415; 83735; 87205; 85610; 80076; 83605; 84484; 83690; 83880; 71275; 71045; 82805; 99285; 87428; 36600; 94660; Q9967; J3475; J7614 ×4; J7644; J2919; J0696; J7050; J7030